=== PATIENT | female | born 1960 | race Caucasian/White ===

== ENCOUNTER 2020-06-26 12:06 | Outpatient (CLI) | payer MEDICARE, SELFPAY ==
--- NOTE | 2020-06-26 14:28 | XRR_ITS ---
PROCEDURE INFORMATION: Exam: XR Lumbosacral Spine, 2 or 3 Views Exam date and time: 06/26/2020 2:28 PM Age: 60 years old Clinical indication: Pain and injury or trauma; Fall; Blunt trauma (contusions or hematomas); Low back pain; Prior surgery; Additional info: Injury and pain TECHNIQUE: Imaging protocol: XR of the lumbosacral spine, 2 or 3 views. COMPARISON: No relevant prior studies available. FINDINGS: Bones/joints: Thoracolumbar levoscoliosis. No acute fracture evident. Mild anterior wedging of the T11 and T12 vertebral bodies, appears chronic. Degenerative facet sclerosis L4 through S1. 4.5 mm of anterior degenerative spondylolisthesis L4 on L5. Three fixation bars in place across the left SI joint. Soft tissues: Unremarkable. XR/XR lumbar spine 2-3V* [id number] IMPRESSION: No acute process evident. Chronic findings as described above.
--- NOTE | 2020-06-26 14:28 | XRR_ITS ---
PROCEDURE INFORMATION: Exam: XR Right Hip with Pelvis when Performed Exam date and time: 06/26/2020 2:28 PM Age: 60 years old Clinical indication: Pain and injury or trauma; Fall; Blunt trauma (contusions or hematomas); Hip pain; Right hip; Additional info: Injury/pain TECHNIQUE: Imaging protocol: XR Right hip with pelvis when performed. Views: 1 view. COMPARISON: CR XR lumbar spine 2-3V* [id number] 06/26/2020 12:32 PM FINDINGS: Bones/joints: Unremarkable. No acute fracture. Soft tissues: Unremarkable. XR/XR hip RT 2-3V wo/w pel* [id number] IMPRESSION: No acute findings.
== END 2020-06-26 12:07 | disposition home or self-care (01) ==
PROVIDERS: Family Provider General Practice; PCP General Practice; Referring Provider Nurse Practitioner; Visit Provider Nurse Practitioner
DX: M25.551 Pain in right hip (principal); M54.5 Low back pain
CPT/HCPCS: 72100; 73502

== ENCOUNTER → 2020-07-24 12:05 | Outpatient (BNVA) | payer MEDICARE, SELFPAY | PROVIDERS: Family Provider General Practice; PCP General Practice; Visit Provider Nurse Practitioner Family | DX: S69.92XA Unspecified injury of left wrist, hand and finger(s), initial encounter (principal); V80.010A Animal-rider injured by fall from or being thrown from horse in noncollision accident, initial encounter | CPT/HCPCS: 73110 ==

== ENCOUNTER → 2021-08-14 18:47 | Outpatient (BNVA) | payer OTHER, SELFPAY | PROVIDERS: Family Provider General Practice; PCP General Practice; Visit Provider Nurse Practitioner | DX: R39.9 Unspecified symptoms and signs involving the genitourinary system (principal) | CPT/HCPCS: 81000 ==

== ENCOUNTER → 2021-09-21 13:59 | Outpatient (BNVA) | payer OTHER, SELFPAY | PROVIDERS: Family Provider General Practice; PCP General Practice; Visit Provider Nurse Practitioner | DX: M79.645 Pain in left finger(s) (principal) | CPT/HCPCS: 73130 ==

== ENCOUNTER → 2021-10-02 09:18 | Outpatient (BNVA) | payer OTHER, SELFPAY | PROVIDERS: Family Provider General Practice; PCP General Practice; Visit Provider Family Medicine Adult Medicine | DX: N39.0 Urinary tract infection, site not specified (principal) | CPT/HCPCS: 81000 ==

== ENCOUNTER → 2021-10-15 07:50 | Outpatient (BNVA) | payer OTHER, SELFPAY | PROVIDERS: Family Provider General Practice; PCP General Practice; Visit Provider Nurse Practitioner Family | DX: N30.10 Interstitial cystitis (chronic) without hematuria (principal) | CPT/HCPCS: 81003 ==

== ENCOUNTER → 2021-11-29 08:16 | Outpatient (BNVA) | payer MEDICARE, SELFPAY | PROVIDERS: Family Provider General Practice; PCP General Practice; Visit Provider Urology | DX: N39.0 Urinary tract infection, site not specified (principal) | CPT/HCPCS: 81003; 87077; 87086; 87184 ==

== ENCOUNTER → 2022-01-25 09:22 | Outpatient (BNVA) | payer MEDICARE, SELFPAY | PROVIDERS: Family Provider General Practice; PCP General Practice; Visit Provider Urology | DX: N39.0 Urinary tract infection, site not specified (principal) | CPT/HCPCS: 81003; 99213 ==

== ENCOUNTER → 2022-02-06 12:38 | Outpatient (BNVA) | payer MEDICARE, SELFPAY | PROVIDERS: Family Provider General Practice; PCP General Practice; Referring Provider General Practice; Visit Provider Internal Medicine | DX: R30.1 Vesical tenesmus (principal); R94.6 Abnormal results of thyroid function studies; E03.8 Other specified hypothyroidism; R53.83 Other fatigue; Z87.891 Personal history of nicotine dependence | CPT/HCPCS: 99204 ==

== ENCOUNTER 2022-02-14 10:20 | Outpatient (CLI) | payer MEDICARE, SELFPAY ==
[2022-02-14 11:49] LABS: Free T4 Free Thyroxine 0.84 ng/dL (0.82-1.77); Thyroid Stimulating Hormone 3.62 uIU/mL (0.27-4.20)
[2022-02-15 06:37] LABS: T3 Total 83 ng/dL (76-181)
[2022-02-15 14:37] LABS: Thyroglobulin AB <1 IU/mL (< or = 1); Thyroid Peroxidase Antobodies 3 IU/mL (<9)
[2022-02-19 19:23] LABS: TSH Receptor Binding Antibody <1.00 IU/L (< OR = 2.00)
== END 2022-02-14 10:21 | disposition home or self-care (01) ==
LOC: LAB 10:27
PROVIDERS: PCP General Practice; Visit Provider Internal Medicine
DX: R94.6 Abnormal results of thyroid function studies (principal)
CPT/HCPCS: 83516; 84439; 84443; 84480; 86376; 86800

== ENCOUNTER 2022-04-08 09:35 | Outpatient (CLI) | payer MEDICARE, SELFPAY ==
--- NOTE | 2022-04-08 09:46 | XRR_ITS ---
PROCEDURE INFORMATION: Exam: XR Right Hand Exam date and time: 04/08/2022 10:00 AM Age: 61 years old Clinical indication: Injury or trauma; Other: Hit a mule; Blunt trauma (contusions or hematomas); Hand; Right; Injury date: Couple of weeks ago; Additional info: R hand pain, swelling after trauma TECHNIQUE: Imaging protocol: Radiologic exam of the Right hand. Views: 3 or more views. COMPARISON: No relevant prior studies available. FINDINGS: Bones/joints: Fracture in the distal metadiaphysis of the 5th metacarpal. Palmar and radial angulation of the distal fracture fragment. No dislocation identified. Soft tissues: Unremarkable. XR/XR hand RT min 3V* [id number] IMPRESSION: Fracture of the distal 5th metacarpal.
[2022-04-08 15:59] LABS: Free T4 Free Thyroxine 0.85 ng/dL (0.82-1.77); Thyroid Stimulating Hormone 2.43 uIU/mL (0.27-4.20)
== END 2022-04-08 09:36 | disposition home or self-care (01) ==
LOC: RAD 09:37
PROVIDERS: Internal Medicine; PCP General Practice; Visit Provider Family Medicine
DX: M79.641 Pain in right hand (principal); E03.8 Other specified hypothyroidism; R53.83 Other fatigue; S62.306A Unspecified fracture of fifth metacarpal bone, right hand, initial encounter for closed fracture; X58.XXXA Exposure to other specified factors, initial encounter; R13.10 Dysphagia, unspecified; R94.6 Abnormal results of thyroid function studies
CPT/HCPCS: 26600; 36415; 73130; 84439; 84443; 99203; 99214

== ENCOUNTER 2022-04-08 15:10 | Outpatient (CLI) | payer MEDICARE, SELFPAY | END 2022-04-08 15:11 | disposition home or self-care (01) | LOC: SPT 15:11 | PROVIDERS: PCP General Practice; Visit Provider Specialist | DX: Z46.89 Encounter for fitting and adjustment of other specified devices (principal); S62.366D Nondisplaced fracture of neck of fifth metacarpal bone, right hand, subsequent encounter for fracture with routine healing; X58.XXXD Exposure to other specified factors, subsequent encounter | CPT/HCPCS: 97760; L3984 ==

== ENCOUNTER → 2022-05-06 10:35 | Outpatient (BNVA) | payer MEDICARE, SELFPAY | PROVIDERS: PCP General Practice; Visit Provider Specialist | DX: S62.366D Nondisplaced fracture of neck of fifth metacarpal bone, right hand, subsequent encounter for fracture with routine healing (principal); X58.XXXD Exposure to other specified factors, subsequent encounter | CPT/HCPCS: 73130; 99024 ==

== ENCOUNTER 2022-05-08 06:00 | Outpatient (RCR) | payer MEDICARE, SELFPAY | END 2022-05-24 23:59 | disposition home or self-care (01) | LOC: MOT 06:00 | PROVIDERS: PCP General Practice; Visit Provider Specialist | DX: S62.306D Unspecified fracture of fifth metacarpal bone, right hand, subsequent encounter for fracture with routine healing (principal); X58.XXXD Exposure to other specified factors, subsequent encounter | CPT/HCPCS: 97018; 97110; 97140; 97166 ==

== ENCOUNTER → 2022-07-30 09:26 | Outpatient (BNVA) | payer MEDICARE, SELFPAY | PROVIDERS: PCP General Practice; Visit Provider Urology | DX: N39.0 Urinary tract infection, site not specified (principal) | CPT/HCPCS: 51798; 81003; 99213 ==

== ENCOUNTER → 2022-10-07 14:10 | Outpatient (BNVA) | payer MEDICARE, SELFPAY | PROVIDERS: PCP General Practice; Visit Provider Internal Medicine | DX: E03.8 Other specified hypothyroidism (principal); R53.83 Other fatigue | CPT/HCPCS: 99214 ==

== ENCOUNTER 2022-10-17 15:25 | Outpatient (CLI) | payer MEDICARE, SELFPAY ==
[2022-10-17 16:21] LABS: Chol HDL Ratio 4.37 mg/dL (0.0-4.40); Cholesterol 227 mg/dL (0-200); Free T4 Free Thyroxine 0.97 ng/dL (0.82-1.77); HDL Cholesterol 52 mg/dL (60-100); LDL Cholesterol Calculated 130 mg/dL (50-129); Thyroid Stimulating Hormone 2.68 uIU/mL (0.27-4.20); Triglycerides 227 mg/dL (0-150)
== END 2022-10-17 15:26 | disposition home or self-care (01) ==
LOC: LAB 15:28
PROVIDERS: PCP General Practice; Visit Provider Internal Medicine
DX: R53.83 Other fatigue (principal); E03.8 Other specified hypothyroidism
CPT/HCPCS: 36415; 80061; 84439; 84443

== ENCOUNTER → 2022-11-27 10:19 | Outpatient (BNVA) | payer MEDICARE, SELFPAY | PROVIDERS: PCP General Practice; Visit Provider Internal Medicine | DX: L65.9 Nonscarring hair loss, unspecified (principal); R53.83 Other fatigue; E03.8 Other specified hypothyroidism | CPT/HCPCS: 99214 ==

== ENCOUNTER 2022-12-26 11:40 | Outpatient (CLI) | payer MEDICARE, SELFPAY ==
[2022-12-26 12:46] LABS: Free T4 Free Thyroxine 0.78 ng/dL (0.82-1.77); Thyroid Stimulating Hormone 1.31 uIU/mL (0.27-4.20)
== END 2022-12-26 11:41 | disposition home or self-care (01) ==
LOC: LAB 11:43
PROVIDERS: PCP General Practice; Visit Provider Internal Medicine
DX: R53.83 Other fatigue (principal); Z79.899 Other long term (current) drug therapy
CPT/HCPCS: 36415; 84439; 84443

== ENCOUNTER → 2023-01-27 12:44 | Outpatient (BNVA) | payer MEDICARE, SELFPAY | PROVIDERS: PCP General Practice; Referring Provider Internal Medicine; Visit Provider Nurse Practitioner Family | DX: L63.8 Other alopecia areata (principal); L81.4 Other melanin hyperpigmentation; D22.5 Melanocytic nevi of trunk; Z71.89 Other specified counseling; L85.3 Xerosis cutis; L57.8 Other skin changes due to chronic exposure to nonionizing radiation; L65.0 Telogen effluvium | CPT/HCPCS: 11900; 99203; J3301 ==

== ENCOUNTER 2023-04-07 14:00 | Outpatient (CLI) | payer MEDICARE, SELFPAY ==
[2023-04-07 15:05] LABS: Free T4 Free Thyroxine 1.03 ng/dL (0.82-1.77); Thyroid Stimulating Hormone 1.67 uIU/mL (0.27-4.20)
[2023-04-08 10:40] LABS: T3 Total 94 ng/dL (76-181)
== END 2023-04-07 14:01 | disposition home or self-care (01) ==
PROVIDERS: PCP General Practice; Visit Provider Internal Medicine
DX: E03.8 Other specified hypothyroidism (principal); L65.9 Nonscarring hair loss, unspecified; R13.10 Dysphagia, unspecified; R53.83 Other fatigue
CPT/HCPCS: 84439; 84443; 84480

== ENCOUNTER → 2023-04-14 13:59 | Outpatient (BNVA) | payer MEDICARE, SELFPAY | PROVIDERS: PCP General Practice; Visit Provider Nurse Practitioner Family | DX: L63.8 Other alopecia areata (principal); D22.39 Melanocytic nevi of other parts of face; L81.4 Other melanin hyperpigmentation | CPT/HCPCS: 99213 ==

== ENCOUNTER → 2023-04-16 13:46 | Outpatient (BNVA) | payer MEDICARE, SELFPAY | PROVIDERS: PCP General Practice; Visit Provider Internal Medicine | DX: R53.83 Other fatigue (principal); E03.8 Other specified hypothyroidism; R13.10 Dysphagia, unspecified; L65.9 Nonscarring hair loss, unspecified; Z79.890 Hormone replacement therapy | CPT/HCPCS: 99214 ==

== ENCOUNTER → 2023-08-11 10:34 | Outpatient (BNVA) | payer MEDICARE, SELFPAY | PROVIDERS: PCP General Practice; Visit Provider Nurse Practitioner Family | DX: D22.39 Melanocytic nevi of other parts of face (principal); L81.4 Other melanin hyperpigmentation; L57.8 Other skin changes due to chronic exposure to nonionizing radiation | CPT/HCPCS: 99214 ==

== ENCOUNTER → 2023-09-23 09:12 | Outpatient (BNVA) | payer MEDICARE, SELFPAY | PROVIDERS: PCP General Practice; Visit Provider Internal Medicine | DX: E03.8 Other specified hypothyroidism (principal); R53.83 Other fatigue; R13.10 Dysphagia, unspecified; L65.9 Nonscarring hair loss, unspecified; R63.5 Abnormal weight gain; R06.83 Snoring; Z68.27 Body mass index [BMI] 27.0-27.9, adult; Z79.85 Long-term (current) use of injectable non-insulin antidiabetic drugs; Z79.890 Hormone replacement therapy | CPT/HCPCS: 99214 ==

== ENCOUNTER 2023-10-02 11:14 | Outpatient (CLI) | payer MEDICARE, SELFPAY ==
[2023-10-02 12:23] LABS: Free T4 Free Thyroxine 1.14 ng/dL (0.82-1.77)
== END 2023-10-02 11:15 | disposition home or self-care (01) ==
LOC: LAB 11:16
PROVIDERS: PCP General Practice; Visit Provider Internal Medicine
DX: R53.83 Other fatigue (principal)
CPT/HCPCS: 36415; 84439; 84443

== ENCOUNTER → 2023-11-20 09:30 | Outpatient (BNVA) | payer MEDICARE, SELFPAY | PROVIDERS: PCP General Practice; Visit Provider Nurse Practitioner Family | DX: J02.9 Acute pharyngitis, unspecified (principal) | CPT/HCPCS: 87880 ==

== ENCOUNTER → 2023-12-11 09:25 | Outpatient (BNVA) | payer MEDICARE, SELFPAY | PROVIDERS: PCP General Practice; Visit Provider Internal Medicine | DX: R53.83 Other fatigue (principal); E03.8 Other specified hypothyroidism; R13.10 Dysphagia, unspecified; L65.9 Nonscarring hair loss, unspecified; R63.5 Abnormal weight gain; R06.83 Snoring; Z79.890 Hormone replacement therapy; Z79.85 Long-term (current) use of injectable non-insulin antidiabetic drugs; Z68.26 Body mass index [BMI] 26.0-26.9, adult | CPT/HCPCS: 99214 ==

== ENCOUNTER 2024-01-07 14:00 | Outpatient (CLI) | payer MEDICARE, SELFPAY | END 2024-01-07 14:01 | disposition home or self-care (01) | LOC: SLEEP 01-08 12:04 | PROVIDERS: PCP General Practice; Visit Provider Internal Medicine | DX: G47.33 Obstructive sleep apnea (adult) (pediatric) (principal) | CPT/HCPCS: G0399 ==

== ENCOUNTER → 2024-01-29 11:01 | Outpatient (BNVA) | payer MEDICARE, SELFPAY | PROVIDERS: PCP General Practice; Visit Provider Internal Medicine | DX: R53.83 Other fatigue (principal); E03.8 Other specified hypothyroidism; R13.10 Dysphagia, unspecified; L65.9 Nonscarring hair loss, unspecified; R63.5 Abnormal weight gain; R06.83 Snoring; G47.33 Obstructive sleep apnea (adult) (pediatric); Z79.890 Hormone replacement therapy; Z68.26 Body mass index [BMI] 26.0-26.9, adult | CPT/HCPCS: 99214 ==

== ENCOUNTER → 2024-01-30 10:16 | Outpatient (BNVA) | payer MEDICARE, SELFPAY | PROVIDERS: PCP General Practice; Visit Provider Nurse Practitioner Family | DX: L63.8 Other alopecia areata (principal); D22.9 Melanocytic nevi, unspecified; L81.4 Other melanin hyperpigmentation; L57.8 Other skin changes due to chronic exposure to nonionizing radiation | CPT/HCPCS: 99214 ==

== ENCOUNTER → 2024-04-21 16:51 | Outpatient (BNVA) | payer MEDICARE, SELFPAY | PROVIDERS: PCP General Practice; Visit Provider Registered Nurse Neonatal Intensive Care | DX: R39.9 Unspecified symptoms and signs involving the genitourinary system (principal) | CPT/HCPCS: 81000; 87086 ==

== ENCOUNTER → 2024-06-07 12:05 | Outpatient (BNVA) | payer MEDICARE, SELFPAY | PROVIDERS: PCP General Practice; Visit Provider Registered Nurse Neonatal Intensive Care | DX: M25.571 Pain in right ankle and joints of right foot (principal) | CPT/HCPCS: 73610; 73630 ==

== ENCOUNTER 2024-06-08 10:09 | Outpatient (CLI) | payer MEDICARE, SELFPAY ==
[2024-06-08 11:15] LABS: Free T4 Free Thyroxine 1.07 ng/dL (0.82-1.77); Thyroid Stimulating Hormone 1.55 uIU/mL (0.27-4.20)
== END 2024-06-08 10:10 | disposition home or self-care (01) ==
LOC: LAB 10:10
PROVIDERS: PCP General Practice; Visit Provider Internal Medicine
DX: R53.83 Other fatigue (principal)
CPT/HCPCS: 36415; 84439; 84443

== ENCOUNTER → 2024-06-10 09:45 | Outpatient (BNVA) | payer MEDICARE, SELFPAY | PROVIDERS: PCP General Practice; Visit Provider Internal Medicine | DX: E03.8 Other specified hypothyroidism (principal); R53.83 Other fatigue; R13.10 Dysphagia, unspecified; L65.9 Nonscarring hair loss, unspecified; R63.5 Abnormal weight gain; G47.33 Obstructive sleep apnea (adult) (pediatric); Z68.27 Body mass index [BMI] 27.0-27.9, adult; Z79.890 Hormone replacement therapy; Z79.85 Long-term (current) use of injectable non-insulin antidiabetic drugs | CPT/HCPCS: 99214 ==

== ENCOUNTER → 2024-06-22 15:05 | Outpatient (BNVA) | payer MEDICARE, SELFPAY | PROVIDERS: PCP General Practice; Visit Provider Podiatrist Foot & Ankle Surgery | DX: S92.154A Nondisplaced avulsion fracture (chip fracture) of right talus, initial encounter for closed fracture; V80.018A Animal-rider injured by fall from or being thrown from other animal in noncollision accident, initial encounter; Z46.89 Encounter for fitting and adjustment of other specified devices; S92.151D Displaced avulsion fracture (chip fracture) of right talus, subsequent encounter for fracture with routine healing; X58.XXXD Exposure to other specified factors, subsequent encounter | CPT/HCPCS: 73610 ==

== ENCOUNTER 2024-06-22 15:33 | Outpatient (CLI) | payer MEDICARE, SELFPAY | END 2024-06-22 15:34 | disposition home or self-care (01) | LOC: SPT 15:33 | PROVIDERS: PCP General Practice; Visit Provider Podiatrist Foot & Ankle Surgery | DX: Z46.89 Encounter for fitting and adjustment of other specified devices (principal); S92.151D Displaced avulsion fracture (chip fracture) of right talus, subsequent encounter for fracture with routine healing; X58.XXXD Exposure to other specified factors, subsequent encounter | CPT/HCPCS: 99203; L1902 ==

== ENCOUNTER → 2024-07-20 14:43 | Outpatient (BNVA) | payer MEDICARE, SELFPAY | PROVIDERS: PCP General Practice; Visit Provider Podiatrist Foot & Ankle Surgery | DX: S92.154D Nondisplaced avulsion fracture (chip fracture) of right talus, subsequent encounter for fracture with routine healing (principal); X58.XXXD Exposure to other specified factors, subsequent encounter | CPT/HCPCS: 99213 ==

== ENCOUNTER → 2024-07-27 10:59 | Outpatient (BNVA) | payer MEDICARE, SELFPAY | PROVIDERS: PCP General Practice; Visit Provider Internal Medicine | DX: R53.83 Other fatigue (principal); E03.8 Other specified hypothyroidism; R13.10 Dysphagia, unspecified; L65.9 Nonscarring hair loss, unspecified; R63.5 Abnormal weight gain; G47.33 Obstructive sleep apnea (adult) (pediatric); Z68.27 Body mass index [BMI] 27.0-27.9, adult | CPT/HCPCS: 99214 ==

== ENCOUNTER 2025-01-19 12:50 | Outpatient (CLI) | payer MEDICARE, SELFPAY ==
[2025-01-19 13:49] LABS: Free T4 Free Thyroxine 0.91 ng/dL (0.82-1.77); Thyroid Stimulating Hormone 0.91 uIU/mL (0.27-4.20)
== END 2025-01-19 12:51 | disposition home or self-care (01) ==
PROVIDERS: PCP General Practice; Visit Provider Internal Medicine
DX: E03.8 Other specified hypothyroidism (principal); R53.83 Other fatigue
CPT/HCPCS: 36415; 84439; 84443

== ENCOUNTER → 2025-01-21 11:32 | Outpatient (BNVA) | payer MEDICARE, SELFPAY | PROVIDERS: PCP General Practice; Visit Provider Internal Medicine | DX: R53.83 Other fatigue (principal); E03.8 Other specified hypothyroidism; R13.10 Dysphagia, unspecified; L65.9 Nonscarring hair loss, unspecified; R63.5 Abnormal weight gain; G47.33 Obstructive sleep apnea (adult) (pediatric) | CPT/HCPCS: 99214 ==

== ENCOUNTER → 2025-01-28 10:51 | Outpatient (BNVA) | payer MEDICARE, SELFPAY | PROVIDERS: PCP General Practice; Visit Provider Obstetrics & Gynecology | DX: R30.0 Dysuria (principal) | CPT/HCPCS: 81000; 87086 ==

== ENCOUNTER → 2025-04-29 09:00 | Outpatient (BNVA) | payer MEDICARE, SELFPAY | PROVIDERS: PCP General Practice; Visit Provider Nurse Practitioner Family | DX: L63.8 Other alopecia areata (principal); E03.8 Other specified hypothyroidism; D22.5 Melanocytic nevi of trunk; L81.4 Other melanin hyperpigmentation; L57.8 Other skin changes due to chronic exposure to nonionizing radiation; L91.8 Other hypertrophic disorders of the skin; R20.8 Other disturbances of skin sensation; L53.8 Other specified erythematous conditions; Z78.9 Other specified health status | CPT/HCPCS: 17110; 99214 ==

== ENCOUNTER 2025-07-13 13:11 | Emergency (ER) | payer MEDICARE, SELFPAY ==
[2025-07-13 13:12] VITALS: BP 135/85; PULSE 65; RESP 18; TEMP 36.9; O2SAT 95
--- NOTE | 2025-07-13 13:20 | CTR_ITS ---
PROCEDURE INFORMATION: Exam: CT Head Without Contrast Exam date and time: 07/13/2025 1:22 PM Age: 65 years old Clinical indication: Stroke-like symptoms; Other: Symptoms of acute stroke TECHNIQUE: Imaging protocol: Computed tomography of the head without contrast. Radiation optimization: All CT scans at this facility use at least one of these dose optimization techniques: automated exposure control; mA and/or kV adjustment per patient size (includes targeted exams where dose is matched to clinical indication); or iterative reconstruction. Other technique: STROKE PROTOCOL was implemented. COMPARISON: No relevant prior studies available. RADIATION DOSE METRICS: Total DLP (mGy-cm): 991.2 FINDINGS: Brain: Normal. No hemorrhage. Unremarkable white matter. No mass effect. Cerebral ventricles: No ventriculomegaly. Paranasal sinuses: Visualized sinuses are unremarkable. No fluid levels. Mastoid air cells: Visualized mastoid air cells are well aerated. Bones: Unremarkable. No acute fracture. Soft tissues: Unremarkable. CT/CT head thrombolytic [id number] IMPRESSION: No acute intracranial abnormality. ASSESSMENT: ASPECTS ([place] Stroke Program Early CT Score) is 10.
--- NOTE | 2025-07-13 13:21 | XRR_ITS ---
PROCEDURE INFORMATION: Exam: XR Chest Exam date and time: 07/13/2025 1:40 PM Age: 65 years old Clinical indication: Other: Weakness TECHNIQUE: Imaging protocol: Radiologic exam of the chest. Views: 1 view. COMPARISON: No relevant prior studies available. FINDINGS: Tubes, catheters and devices: A pacemaker device is present and its leads are in appropriate position. Lungs: Unremarkable. No consolidation. Pleural spaces: Unremarkable. No pleural effusion. No pneumothorax. Heart/Mediastinum: Unremarkable. No cardiomegaly. Bones/joints: Mild degenerative disease of bilateral acromioclavicular joints. There are mild degenerative changes of the glenohumeral joint. Mild curvature of the thoracic spine convex to the left. Organs: There has been a cholecystectomy. XR/XR chest 1V portable [id number] IMPRESSION: No acute cardiopulmonary process.
--- NOTE | 2025-07-13 13:36 | ECG_ITS ---
[facility] Test Date: 2025-07-13 Pat Name: Nesha Covarrubias Department: Room: Gender: Female Bonding Agent: : [id number] Requested By: Bia Lopez Order Number: [id number] Morocho MD: Sandrita Vegas M.D. Measurements Intervals [place] Rate: 60 P: 80 TX: 199 QRS: -25 QRSD: 100 T: 73 QT: 442 QTc: 443 Interpretive Statements ELECTRONIC ATRIAL PACEMAKER BORDERLINE LEFT AXIS DEVIATION [QRS AXIS < -20] LOW QRS VOLTAGE IN PRECORDIAL LEADS [QRS DEFLECTION < 1.0 mV IN CHEST LEADS] ABNORMAL RHYTHM ECG No previous ECG available for comparison Non diagnostic T wave changes Electronically Signed On 07-13-2025 23:55:02 MEDICAL TECHNOLOGIST [employer] by Sandrita Vegas M.D. [email or web address]
[2025-07-13 13:41] LABS: Hematocrit 40.0 % (36-47); Hemoglobin 13.30 g/dL (11.27-16.99); Mean Corpuscular HGB Conc 33.3 g/dL (30-55); Mean Corpuscular Hemoglobin 30.6 pg (27-33); Mean Corpuscular Volume 92.2 fl (85-98); Nucleated Red Blood Cells % 0 %; Platelet Count 245 10^3/cmm (157-399); Red Blood Count 4.34 10^6/uL (3.85-5.65); White Blood Count 7.51 10^3/uL (3.29-11.43)
--- NOTE | 2025-07-13 13:42 | W.ED.NEUROSD ---
HPI - Neuro Symptoms/Deficit General: Chief Complaint: Neuro Symptoms/Deficit Stated Complaint: weakness Time Seen by Provider: 07/13/25 13:20 History of Present Illness: 65-year-old female with a history of pacemaker placement, hyperlipidemia, obstructive sleep apnea, hypothyroidism, who presents emergency room after having had a couple of altered events. said she suddenly just stood there and could not speak. She felt like she was stuck and could not talk. No focal motor deficits. She was standing during both events and would not walk. And lasted 2 to 3 minutes. Currently she has no symptoms Related Data Home Medications ?Medication ?Instructions ?Recorded ?Confirmed escitalopram oxalate 20 mg tablet 20 mg PO DAILY 08/14/21 01/28/25 (Lexapro) hydrocodone 7.5 mg-acetaminophen tab PO 08/14/21 01/28/25 500 mg tablet pregabalin 100 mg capsule (Lyrica) 100 mg PO BID 08/14/21 01/28/25 sotalol 80 mg tablet 80 mg PO BID 08/14/21 01/28/25 topiramate 100 mg tablet (Topamax) 100 mg PO BID 08/14/21 01/28/25 atorvastatin 40 mg tablet 40 mg PO DAILY 10/02/21 01/28/25 valacyclovir 500 mg tablet 500 mg PO DAILY 10/02/21 01/28/25 fluticasone propionate 50 1 spray intranasal DAILY PRN 10/15/21 01/28/25 mcg/actuation nasal spray,suspension (Flonase Allergy Relief) cyclobenzaprine 7.5 mg tablet 7.5 mg PO BID PRN 11/29/21 01/28/25 cholecalciferol (vitamin D3) 50 100 mcg PO DAILY 02/06/22 01/28/25 mcg (2,000 unit) capsule diazepam 2 mg tablet 2 mg PO QID PRN 02/06/22 01/28/25 mirtazapine 30 mg tablet 15 mg PO DAILY 02/06/22 01/28/25 morphine 15 mg tablet,extended mg PO 06/10/24 01/28/25 release topiramate 200 mg tablet mg PO 06/10/24 01/28/25 topiramate 50 mg tablet mg PO 06/10/24 01/28/25 aspirin 81 mg chewable tablet 81 mg PO DAILY 06/22/24 01/28/25 mecobalamin (vitamin B12) 1,000 1,000 mcg PO DAILY 06/22/24 01/28/25 mcg lozenges oxckyqen-ces-gsuha acid 200 tab PO DAILY 06/22/24 01/28/25 mcg-collagen, hydrolyzed 25 mg chew tablet Previous Rx's ?Medication ?Instructions ?Recorded ASO #1 ea 06/22/24 pen needle, diabetic 32 gauge x #100 ea 08/16/24 (TechLITE Pen Needle) liraglutide 0.6 mg/0.1 mL (18 mg/3 See Rx Instructions SUBCUT 01/21/25 mL) subcutaneous pen injector .COMPLEX #9 mL (Victoza 3-Eladio) amoxicillin 500 mg-potassium 1 tab PO BID #14 tabs 01/28/25 clavulanate 125 mg tablet (Augmentin) nitrofurantoin 100 mg PO BID #20 caps 01/28/25 monohydrate/macrocrystals 100 mg capsule (Macrobid) estradiol 0.01% (0.1 mg/gram) 1 appful vaginal DAILY #42.5 grams 03/23/25 vaginal cream (Estrace) levothyroxine 25 mcg tablet See Rx Instructions .Route 03/24/25 .COMPLEX #90 tabs aspirin 325 mg capsule 325 mg PO DAILY #30 caps 07/13/25 atorvastatin 40 mg tablet (Lipitor) 40 mg PO DAILY #30 tabs 07/13/25 Allergies Allergy/AdvReac Type Severity Reaction Status Date / Time celecoxib (From Celebrex) Allergy ADR-Nausea Verified 01/28/25 10:35 erythromycin base Allergy RASH Verified 01/28/25 10:35 ibuprofen Allergy RASH Verified 01/28/25 10:35 lamotrigine (From Lamictal) Allergy RASH Verified 01/28/25 10:35 naproxen Allergy RASH Verified 01/28/25 10:35 tetracycline Allergy ADR-Gastrointestinal Verified 01/28/25 10:35 Upset zolpidem (From Ambien) Allergy RASH Verified 01/28/25 10:35 Review of Systems Narrative: Constitutional symptoms: Negative except as documented in HPI. Skin symptoms: Negative except as documented in HPI. Eye symptoms: Negative except as documented in HPI. ENMT symptoms: Negative except as documented in HPI. Respiratory symptoms: Negative except as documented in HPI. Cardiovascular symptoms: Negative except as documented in HPI. Gastrointestinal symptoms: Negative except as documented in HPI. Genitourinary symptoms: Negative except as documented in HPI. Musculoskeletal symptoms: Negative except as documented in HPI. Neurologic symptoms: Negative except as documented in HPI. Psychiatric symptoms: Negative except as documented in HPI. Endocrine symptoms: Negative except as documented in HPI. PFSH ED PFSH: Medical History (Updated 07/13/25 @ 14:40 by Bia Georges MD) History of pacemaker Recurrent UTI Cystitis, interstitial Painful bladder spasm Surgical History History of lumbar surgery History of open heart surgery Hx of tonsillectomy Hx of section History of partial hysterectomy Hx of hernia repair Hx of hysterectomy Family History Father , UNKNOWN Shotgun accident Mother , AT AGE 49 Pancreatitis Heart disease Ovarian cancer Uterine cancer Sister Uterine cancer Ovarian cancer High cholesterol Grandfather Hypertension Diabetes Social History Smoking and tobacco/nicotine status: never used tobacco/nicotine Alcohol intake: current Alcohol intake frequency: holidays/special occasions only Substance/Drug Use: current Marital status: Current occupational status: disabled Female Reproductive History: Spontaneous abortions: No Physical Exam Narrative: EXAM NARRATIVE: General: Alert, no acute distress. Skin: Warm, dry. Head: Normocephalic, atraumatic. Neck: Supple, trachea midline. Eye: Extraocular movements are intact. Ears, nose, mouth and throat: mucosa moist. Cardiovascular: Regular, Normal peripheral perfusion. Respiratory: Lungs are clear to auscultation, respirations are non-labored, breath sounds are equal, Symmetrical chest wall expansion. Gastrointestinal: Soft, Nontender, Non distended Musculoskeletal: Normal ROM, no deformity. Neurological: Alert and oriented, No focal neurological deficit observed. Psychiatric: Cooperative, appropriate mood & affect. Course Vital Signs: Vital signs: Vital Signs Temperature 98.4 F 07/13/25 13:12 Pulse Rate 66 07/13/25 14:30 Respiratory Rate 16 07/13/25 13:54 Blood Pressure 127/74 07/13/25 14:30 Pulse Oximetry 95 07/13/25 14:30 Oxygen Delivery Me thod Room Air 07/13/25 14:30 MDM - Neuro Symptoms/Deficit Medical Decision Making Medical decision making Patient's reason for coming to the emergency room: Social determinants: Patient is disabled and . I reviewed the patient's medical record. 65-year-old female with a history of pacemaker placement, hyperlipidemia, obstructive sleep apnea, hypothyroidism I reviewed the patient's current home meds Alternate historians: Primary historian on the event was her . Differential diagnosis for patient with focal neurologic deficit(s) includes but not limited to and based on the above HPI, review of systems and physical exam: ischemic stroke, hemorrhagic stroke and embolic stroke secondary to atrial fibrillation), TIA, Lui's palsy, metabolic encephalopathy with previous stroke. Orders placed to evaluate differential diagnosis based on the above differential, HPI and physical exam Last known well time: She had 2 separate short episodes this morning. had not seen her since about 9 AM prior to the first episode 1311: Patient arrival 1328: NIHSS score was done. She scored 0 at that time NIH Stroke Scale/Score (NIHSS) from [email or web address] on 07/13/2025 All calculations should be rechecked by clinician prior to use RESULT SUMMARY: 0 points NIH Stroke Scale INPUTS: 1A: Level of consciousness ?> 0 = Alert; keenly responsive 1B: Ask month and age ?> 0 = Both questions right 1C: 'Blink eyes' & 'squeeze hands' ?> 0 = Performs both tasks 2: Horizontal extraocular movements ?> 0 = Normal 3: Visual pool ?> 0 = No visual loss 4: Facial palsy ?> 0 = Normal symmetry 5A: Left arm motor drift ?> 0 = No drift for 10 seconds 5B: Right arm motor drift ?> 0 = No drift for 10 seconds 6A: Left leg motor drift ?> 0 = No drift for 5 seconds 6B: Right leg motor drift ?> 0 = No drift for 5 seconds 7: Limb Ataxia ?> 0 = No ataxia 8: Sensation ?> 0 = Normal; no sensory loss 9: Language/aphasia ?> 0 = Normal; no aphasia 10: Dysarthria ?> 0 = Normal 11: Extinction/inattention ?> 0 = No abnormality CT head: No acute intracranial process. No intracranial hemorrhage, no evidence of infarct. No evidence of acute fracture. This was reviewed and interpreted by myself the emergency room physician. I also reviewed the radiology report. Consultation: I spoke with Dr. May who agrees this is not a candidate for tenecteplase. EKG: Time 1336. Rate 60. Normal sinus rhythm, No ST-T changes, no ectopy, paced rhythm, this was reviewed and interpreted by myself the emergency room physician at 1340 Chest x-ray: No acute process. No infiltrate. No pneumothorax. This was reviewed and interpreted by myself the emergency room physician. I also reviewed the radiology report. Lab Review: Laboratory results were reviewed and interpreted by myself the emergency room physician. No leukocytosis. No anemia. No renal failure. No urinary tract infection. Assessment of risk: Level of risk: Moderate risk patient. She has multiple comorbidities. Reexamination: Patient has had no further events. Patient remained stable. No increased work of breathing. No altered mental status. No focal motor deficits. Assessment and plan: Possible TIA - Discharged home - Discussed plan with patient. Answered any questions. - Evaluation and treatment of this problem were appropriate in the emergency setting. Lab Data 07/13/25 13:35 07/13/25 13:[address] 07/13/25 13:20 IMPRESSION: No acute intracranial abnormality. ASSESSMENT: ASPECTS ([place] Stroke Program Early CT Score) is 10. ADDENDUM: 07/13/25 1339 THIS REPORT CONTAINS FINDINGS THAT MAY BE CRITICAL TO PATIENT CARE. The findings were verbally communicated via telephone conference with BIA GEORGES at 1:37 PM PATIENT ACCESS SPECIALIST on 07/13/2025. The findings were acknowledged and understood. Chest X-Ray 07/13/25 13:21 IMPRESSION: No acute cardiopulmonary process. Laboratory Results WBC 7.51 10^3/uL (3.29-11.43) 07/13/25 13:35 RBC 4.34 10^6/uL (3.85-5.65) 07/13/25 13:35 Hgb 13.30 g/dL (11.27-16.99) 07/13/25 13:35 Hct 40.0 % (36-47) 07/13/25 13:35 MCV 92.2 fl (85-98) 07/13/25 13:35 MCH 30.6 pg (27-33) 07/13/25 13:35 MCHC 33.3 g/dL (30-55) 07/13/25 13:35 RDW 13.5 % (12.1-15.1) 07/13/25 13:35 Plt Count 245 10^3/cmm (157-399) 07/13/25 13:35 MPV 9.3 fL (7.4-10.4) 07/13/25 13:35 Neut % (Auto) 47.5 % 07/13/25 13:35 Lymph % (Auto) 42.9 % 07/13/25 13:35 [place] % (Auto) 7.2 % 07/13/25 13:35 Eos % (Auto) 2.3 % 07/13/25 13:35 Baso % (Auto) 0.0 % 07/13/25 13:35 Neut # (Auto) 3.57 10^3/uL (1.8-7.7) 07/13/25 13:35 Lymph # (Auto) 3.2 10^3/uL (0.8-4.8) 07/13/25 13:35 [place] # (Auto) 0.5 10^3/uL (0.2-0.9) 07/13/25 13:35 Eos # (Auto) 0.2 10^3/uL (0.0-0.8) 07/13/25 13:35 Baso # (Auto) 0.0 10^3/uL (0.0-0.1) 07/13/25 13:35 Nucleated RBC % (auto) 0 % 07/13/25 13:35 Nucleated RBCs # 0.0 /100WBC 07/13/25 13:35 PT 13.20 SECONDS (12.1-14.9) 07/13/25 13:35 INR 0.94 (0.8-1.2) 07/13/25 13:35 APTT 28.1 SECONDS (23.9-36.7) 07/13/25 13:35 Sodium 139 mmol/L (136-145) 07/13/25 13:35 Potassium 4.3 mmol/L (3.5-5.1) 07/13/25 13:35 Chloride 107 mmol/L (98-107) 07/13/25 13:35 Carbon Dioxide 21 mmol/L (22-29) L 07/13/25 13:35 Anion Gap 15.3 (5-19) 07/13/25 13:35 BUN 17 mg/dL (8-23) 07/13/25 13:35 Creatinine 0.7 mg/dL (0.5-0.9) 07/13/25 13:35 GFR Calculation 84.2 mL/min (90-130) L 07/13/25 13:35 Glucose 99 mg/dL (65-115) 07/13/25 13:35 Calculated Osmolality 290 mOsm/kg (285-295) 07/13/25 13:35 Calcium 9.0 mg/dL (8.5-10.5) 07/13/25 13:35 Total Bilirubin 0.2 mg/dL (0.15-1.2) 07/13/25 13:35 AST 22 U/L (0-32) 07/13/25 13:35 ALT 22 U/L (0-33) 07/13/25 13:35 Alkaline Phosphatase 103 U/L (35-105) 07/13/25 13:35 Troponin T Baseline < 6 ng/L (0-10) 07/13/25 13:35 Total Protein 6.5 g/dL (6.6-8.7) L 07/13/25 13:35 Albumin 4.5 g/dL (3.5-5.2) 07/13/25 13:35 Globulin 2.0 g/dL (1.3-4.6) 07/13/25 13:35 Urine Color Yellow (Yellow) 07/13/25 13:47 Urine Appearance Clear (CLEAR) 07/13/25 13:47 Urine pH 6.0 (5-7) 07/13/25 13:47 Ur Specific [place] 1.008 (1.005-1.030) 07/13/25 13:47 Urine Protein Negative (Negative) 07/13/25 13:47 Urine Glucose (UA) Negative (Normal) 07/13/25 13:47 Urine Ketones Negative (Negative) 07/13/25 13:47 Urine Blood Negative (Negative) 07/13/25 13:47 Urine Nitrate Negative (Negative) 07/13/25 13:47 Urine Bilirubin Negative (Negative) 07/13/25 13:47 Urine Urobilinogen 0.2 mg/dL (Negative) 07/13/25 13:47 Ur Leukocyte Esterase Negative (Negative) 07/13/25 13:47 Urine RBC 0-2 /hpf (0-2) 07/13/25 13:47 Urine WBC 0-5 /hpf (0-5) 07/13/25 13:47 Ur Squamous Epith Cells 0-5 /hpf (0-5) 07/13/25 13:47 Amorphous Sediment Not Reportable 07/13/25 13:47 Urine Bacteria None seen /hpf (NONE) 07/13/25 13:47 Hyaline Casts 0-4 /lpf H 07/13/25 13:47 Urine Opiates Screen Positive ng/mL (Negative) H 07/13/25 13:47 Ur Barbiturates Screen Negative ng/mL (Negative) 07/13/25 13:47 Ur Phencyclidine Scrn Negative ng/mL (Negative) 07/13/25 13:47 Ur Amphetamines Screen Negative ng/mL (Negative) 07/13/25 13:47 U Benzodiazepines Scrn Positive ng/mL (Negative) H 07/13/25 13:47 Urine Cocaine Screen Negative ng/mL (Negative) 07/13/25 13:47 U Marijuana (THC) Screen Negative ng/mL (Negative) 07/13/25 13:47 All radiology interpretation(s) finalized by discharge Discharge Plan Discharge Patient Disposition: Home Clinical Impression: TIA (transient ischemic attack) Condition: Stable Prescriptions: New atorvastatin [Lipitor] 40 mg tablet 40 mg PO DAILY Qty: 30 1RF aspirin 325 mg capsule 325 mg PO DAILY Qty: 30 1RF No Action povidone-iodine [Betadine Swabsticks] 10 % swab 1 applic topical ONCE Qty: 1 0RF lidocaine (PF) 10 mg/mL (1 %) solution 0.2 ml SUBCUT ONCE Qty: 1 0RF escitalopram oxalate [Lexapro] 20 mg tablet 20 mg PO DAILY topiramate [Topamax] 100 mg tablet 100 mg PO BID sotalol 80 mg tablet 80 mg PO BID pregabalin [Lyrica] 100 mg capsule 100 mg PO BID hydrocodone-acetaminophen 7.5-500 mg tablet PO diazepam 2 mg tablet 2 mg PO QID PRN mirtazapine 30 mg tablet 15 mg PO DAILY atorvastatin 40 mg tablet 40 mg PO DAILY valacyclovir 500 mg tablet 500 mg PO DAILY cyclobenzaprine 7.5 mg tablet 7.5 mg PO BID PRN fluticasone propionate [Flonase Allergy Relief] 50 mcg/actuation spray,suspension 1 spray intranasal DAILY PRN Rx Instructions: administer into each nostril mecobalamin (vitamin B12) 1,000 mcg lozenge 1,000 mcg PO DAILY Rx Instructions: allow to dissolve in mouth OR may chew lightly before swallowing aspirin 81 mg tablet,chewable 81 mg PO DAILY yaazyhta-iaf-epmcy ac-collagen 200 mcg- 25 mg tablet,chewable PO DAILY (DME) ASO See Rx Instructions .Route .MEDSUPPLY Qty: 1 0RF Rx Instructions: As directed liraglutide [Victoza 3-Eladio] 0.6 mg/0.1 mL (18 mg/3 mL) pen injector See Rx Instructions SUBCUT .COMPLEX Qty: 9 3RF Rx Instructions: inject 0.6mg subcutaneously once daily x 7 days; then 1.2mg daily, not to exceed 1.8mg/day SUBCUT cholecalciferol (vitamin D3) 50 mcg (2,000 unit) capsule 100 mcg PO DAILY morphine 15 mg tablet extended release PO topiramate 200 mg tablet PO topiramate 50 mg tablet PO nitrofurantoin monohyd/m-cryst [Macrobid] 100 mg capsule 100 mg PO BID Qty: 20 6RF Rx Instructions: must administer with a meal/food amoxicillin-pot clavulanate [Augmentin] 500-125 mg tablet 1 tab PO BID Qty: 14 0RF (DME) pen needle, diabetic [TechLITE Pen Needle] 32 gauge x 5/32 needle See Rx Instructions .ROUTE .COMPLEX Qty: 100 1RF Dose Instruction: USE directed Rx Instructions: USE directed estradiol [Estrace] 0.01 % (0.1 mg/gram) cream 1 appful vaginal DAILY Qty: 42.5 6RF Rx Instructions: also apply to vulva daily levothyroxine 25 mcg tablet See Rx Instructions .ROUTE .COMPLEX Qty: 90 0RF Dose Instruction: TAKE ONE TABLET BY MOUTH DAILY Rx Instructions: TAKE ONE TABLET BY MOUTH DAILY Discharge Orders: Discharge ED (Routine); Ordered 07/13/25 Ordered By: Bia Georges Referrals: Jenn Black MD [Primary Care Provider, Family Practice] Discharge Diet: Usual diet Discharge Activity: Increase activity as tolerated Patient Instructions: Transient Ischemic Attack (ED), Stroke Prevention (ED), Opioid Safety, Pain Management, Patient Portal & Connie Instructions Activity Restrictions/Additional Instructions: Thank you for choosing [facility] for your healthcare needs today. You have been screened and evaluated and felt safe for discharge. Health conditions do change or evolve sometimes and as such it is important that you follow up with your Primary Doctor to be re checked, 3-5 days is a general good time frame for follow up. You are always welcome to return to the ED for re assessment if your symptoms are worsening or you have new concerns Print Language: Latvian Coding Level of Care Code ED Contact Printer Dry Film for Robby Solano
[2025-07-13 13:54] VITALS: BP 116/71; PULSE 67; RESP 16; O2SAT 95
[2025-07-13 13:57] LABS: INR 0.94 (0.8-1.2); Partial Thromboplastin Time 28.1 SECONDS (23.9-36.7); Prothrombin Time 13.20 SECONDS (12.1-14.9)
[2025-07-13 14:01] LABS: Troponin(5th) Baseline < 6 ng/L (0-10)
[2025-07-13 14:14] LABS: Alanine Aminotransferase 22 U/L (0-33); Albumin Level 4.5 g/dL (3.5-5.2); Alkaline Phosphatase 103 U/L (35-105); Anion Gap 15.3 (5-19); Aspartate Amino Transferase 22 U/L (0-32); Blood Urea Nitrogen 17 mg/dL (8-23); Calcium 9.0 mg/dL (8.5-10.5); Carbon Dioxide 21 mmol/L (22-29); Chloride 107 mmol/L (98-107); Globulin 2.0 g/dL (1.3-4.6); Glucose 99 mg/dL (65-115); Osmolality Calculated 290 mOsm/kg (285-295); Potassium 4.3 mmol/L (3.5-5.1); Sodium 139 mmol/L (136-145); Total Protein 6.5 g/dL (6.6-8.7)
[2025-07-13 14:14] LABS: Glucose Urine UA Negative (Normal); Nitrate Urine Negative (Negative); Specific Gravity, Urine 1.008 (1.005-1.030)
[2025-07-13 14:21] LABS: PCP Screen Urine Negative (Negative)
[2025-07-13 14:30] VITALS: BP 127/74; PULSE 66; O2SAT 95
[2025-07-13 14:45] VITALS: BP 127/74; PULSE 62; O2SAT 96
[2025-07-13 15:06] VITALS: BP 106/85; PULSE 65; O2SAT 99
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
--- OUTSIDE RECORDS SUMMARY | 2025-07-13 15:57 | XMS_ITS | Encounter Summary ---
Author Organization [facility] Address [address] [place] [address] Care Team Providers Care Yoga Coordinator Name Role Phone Jenn Black MD Primary Care Provid er Reason for Visit * Reason Onset Date Comments Medication Refill 06/18/2023 Follow Up 06/18/2023 Encounter Details Date Type Department Care Team (Late st Contact Info) Description 06/18/2023 Telephone [facility] [address] [facility] [address] [place] [phone] Edward Hopson MD [address] [facility] [address] [place] [phone] Medication Refill; Follow Up Social History Tobacco Use Types Packs/Day Years Used Date Smoking Tobacco: Former Cigarettes Smokeless Tobacco: Never Alcohol Use Standard Drinks/Week Comments No 0 (1 standard drink = 0.6 oz pur e alcohol) Comments No Sex and Gender Information Value Date Recorded Sex Assigned at Not on file Legal Sex Female 1:43 PM SUPERVISOR SCOURING PADS Gender Identity Not on file Sexual Orientation Not on file documented as of this encounter Miscellaneous Notes * Telephone Encounter - Fannie Ventura - 06/18/2023 1:26 PM CDT [facility] Call Center Communications Provider: Judd MESSAGE Pt states her pharmacy [facility] in [place] has not yet received the refill for the medication sotalol. (See encounter from 06/09/23) Pt update pt's pharmacy of choice as she no longer uses [facility] pharmacy. This medication needs to be redirected to the [facility] pharmacy. Pt is currently out of this medication. [facility] Credit Verifier: Fannie Ventura PSR documented in this encounter Plan of Treatment Upcoming Encounters Date Type Department Care Team (Late st Contact Info) Description 07/27/2025 8:00 AM SUPERVISOR SCOURING PADS Procedure visit [facility] [address] [place] [phone] Edward Hopson MD [address] [place] [phone] 09/30/2025 10:40 AM SUPERVISOR SCOURING PADS Office Visit [facility] [address] [place] [phone] Edward Hopson MD [address] [place] [phone] Wilda Mattson PA-C [address], [address] [place] [phone] documented as of this encounter Visit Diagnoses Not on filedocumented in this encounter Care Teams Yoga Coordinator Relationship Specialty Start Date End Date Jenn Black MD [address] [address] [place] [address] PCP - General Family Practice 08/04/17 documented as of this encounter
--- OUTSIDE RECORDS SUMMARY | 2025-07-13 15:57 | XMS_ITS | Encounter Summary ---
Author Organization [facility] Address [address] [place] [address] Care Team Providers Care Box Worker Name Role Phone Jenn Black MD Primary Care Provid er Reason for Visit * Reason Onset Date Comments Question 05/16/2023 Encounter Details Date Type Department Care Team (Late st Contact Info) Description 05/16/2023 Telephone [facility] [address] [facility] [address] [place] [phone] Edward Hopson MD [address] [facility] [address] [place] [phone] Question Social History Tobacco Use Types Packs/Day Years Used Date Smoking Tobacco: Former Cigarettes Smokeless Tobacco: Never Alcohol Use Standard Drinks/Week Comments No 0 (1 standard drink = 0.6 oz pur e alcohol) Comments No Sex and Gender Information Value Date Recorded Sex Assigned at Not on file Legal Sex Female 1:43 PM SECURITY AGENT Gender Identity Not on file Sexual Orientation Not on file documented as of this encounter Miscellaneous Notes * Telephone Encounter - Miguel Greenberg - 05/16/2023 1:00 PM CDT [facility] Call Center Communications Provider: Judd Caller: Nesha Relation to Patient: self PHI (Y/N): MESSAGE Pt is asking if she should schedule a calcium artery screening Please advise Corey Greenberg documented in this encounter Plan of Treatment Upcoming Encounters Date Type Department Care Team (Late st Contact Info) Description 07/27/2025 8:00 AM SECURITY AGENT Procedure visit [facility] [address] [place] [address] Edward Hopson MD [address] [place] [phone] 09/30/2025 10:40 AM SECURITY AGENT Office Visit [facility] [address] [place] [phone] Edward Hopson MD [address] [place] [phone] Wilda Mattson PA-C [address] [place] [phone] documented as of this encounter Visit Diagnoses Not on filedocumented in this encounter Care Teams Box Worker Relationship Specialty Start Date End Date Jenn Black MD [address] [place] [phone] PCP - General Family Practice 08/04/17 documented as of this encounter
--- OUTSIDE RECORDS SUMMARY | 2025-07-13 15:57 | XMS_ITS | Encounter Summary ---
Author Organization [facility] Address [address] [place] [address] Care Team Providers Care Restoration Technician Name Role Phone Jenn Black MD Primary Care Provid er Encounter Details Date Type Department Care Team (Late st Contact Info) Description 07/05/2025 External Device Data STL ABSTRACTION Provider, Abstract NO ADDRESS ON FILE Social History Tobacco Use Types Packs/Day Years [...] on file Legal Sex Female 1:43 PM HALL MANAGER Gender Identity Not on file Sexual Orientation Not on file documented as of this encounter Plan of Treatment Upcoming Encounters Date Type Department Care Team (Late st Contact Info) Description 07/27/2025 8:00 AM HALL MANAGER Procedure visit [facility] [address] [place] [phone] Edward Hopson MD [address] [place] [phone] 09/30/2025 10:40 AM HALL MANAGER Office Visit [facility] [address] [place] [phone] Edward Hopson MD [address] [place] [phone] Wilda Mattson PA-C [address] [place] [phone] documented as of this encounter Visit Diagnoses Not on filedocumented in this encounter Care Teams Restoration Technician Relationship Specialty Start Date End Date Jenn Black MD [address] [place] [phone] PCP - General Family Practice 08/04/17 documented as of this encounter
== END 2025-07-13 15:09 | disposition home or self-care (01) ==
PROVIDERS: Emergency Provider Emergency Medicine; PCP General Practice
DX: G45.9 Transient cerebral ischemic attack, unspecified (principal); Z79.82 Long term (current) use of aspirin; Z95.0 Presence of cardiac pacemaker; E78.5 Hyperlipidemia, unspecified
CPT/HCPCS: 70450; 71045; 80053; 80306; 81001; 84484; 85025; 85610; 85730; 93005; 99285